=== PATIENT | male | born 1960 | race American Indian/Alaskan Native ===

== ENCOUNTER 2017-07-17 07:08 | Day surgery (SDC) | payer OTHER ==
[2016-08-25 01:19] VITALS: BMI 29.8
--- NOTE | 2017-07-17 08:15 | CP.SDSHP ---
Same Day Surgery H & P - History Proposed Procedure: Altered bowel habits. Diarrhea. EGD/colonoscopy Pre-Op Diagnosis: Altered bowel habits'/Diarrhea - Allergies Allergies: Allergies No Known Allergies Allergy (Verified 08/24/16 19:45) - Physical Exam General Appearance: nl Vital Signs: Vital Signs 07/17/17 07:43 Temperature 98.4 F Pulse Rate 72 Respiratory 19 Rate Blood Pressure 154/90 H O2 Sat by Pulse 97 Oximetry Mental Status: Alert & Oriented x3 Neuro: WNL Heart: WNL Lungs: WNL GI: WNL - {Optional Preform as Required} Abdomen: WNL - Impression Impression: Altered bowel habits. Diarrhea. EGD/colon Pt. Evaluated Today:Candidate for Anesthesia & Procedure: Yes - Date & Time Date: 07/17/17 Time: 08:14 Short Stay Discharge - Short Stay Discharge Admitting Diagnosis/Reason for Visit: CHRONIC DIARRHEA / EPIGASTRIC PAIN Disposition: HOME/ ROUTINE
[2017-07-17] MEDS ORDERED: Propofol 10 mg/ml Inj (20 ML) ONE (08:21)
[2017-07-17] MEDS ORDERED: Simethicone 40 mg/0.6 ml Liquid (30 ml) ONE (08:25)
[2017-07-17] MEDS ORDERED: Lactated Ringer's 500 ML IV SCH (08:45)
[2017-07-17 09:08] VITALS: TEMP 96.6
[2017-07-17 10:11] VITALS: BP 142/81; PULSE 67; RESP 15; O2SAT 95
== END 2017-07-17 10:05 | disposition home or self-care (01) ==
LOC: C.ENDO 07:08
PROVIDERS: ATTEND Internal Medicine
DX: K29.70 Gastritis, unspecified, without bleeding (principal); K52.9 Noninfective gastroenteritis and colitis, unspecified; R10.13 Epigastric pain; R19.4 Change in bowel habit; K29.80 Duodenitis without bleeding; B96.81 Helicobacter pylori [H. pylori] as the cause of diseases classified elsewhere; D12.0 Benign neoplasm of cecum
CPT/HCPCS: 43239; 45388; 82948; 88305; J2704; J3010; J7120

== ENCOUNTER 2017-08-04 07:27 | Day surgery (SDC) | payer OTHER ==
[2016-08-25 01:19] VITALS: BMI 29.8
[2017-08-04] MEDS ORDERED: Acetaminophen-Codeine 300/30 mg Tab PO PRN (08:36)
[2017-08-04] MEDS ORDERED: Dextrose 5%/0.45% NS 1,000 ML IV SCH (08:45)
[2017-08-04] MEDS ORDERED: ceFAZolin IV 1 gm in Dextrose 1 GM/50 ML BAG IVPB ONE (10:08)
[2017-08-04] MEDS ORDERED: EPINEPHrine 1:1000 Nasal Sol(30mL) ONE (10:08)
[2017-08-04] MEDS ORDERED: Propofol 10 mg/ml Inj (20 ML) ONE ×2 (10:15→10:32)
[2017-08-04] MEDS ORDERED: Midazolam 2 MG/2 ML VIAL ONE (10:15)
[2017-08-04] MEDS ORDERED: Succinylcholine Chloride 20 mg/ml Syr (5 ml) IV ONE (10:32)
[2017-08-04] MEDS ORDERED: Labetalol 25mg/5ml Syringe IVP PRN (11:04)
[2017-08-04] MEDS: HYDROmorphone 0.5 mg/0.5 ml ISec IVP PRN ×5 (11:09→11:53)
[2017-08-04] MEDS ORDERED: Lactated Ringer's 1,000 ML IV ONE (12:00)
[2017-08-04 12:55] VITALS: BP 149/89; PULSE 76; RESP 18; TEMP 97.5; O2SAT 96
--- NOTE | 2017-08-07 08:20 | OP ---
PROCEDURE DATE: 08/04/2017 PREOPERATIVE DIAGNOSIS: Nasopharyngeal mass. POSTOPERATIVE DIAGNOSIS: Nasopharyngeal mass. PROCEDURE: Endoscopic nasopharyngeal mass biopsy. SIGNIFICANT FINDINGS: Nasopharyngeal mass. DESCRIPTION OF PROCEDURE: The patient was brought into the room, placed in a supine position. Anesthesia was initiated through an ET tube. The patient was draped in the usual manner. Adrenaline-soaked pledgets were inserted into the nasal cavity, remained there for 5 minutes and removed. A zero-degree scope was inserted into the nasal cavity and passed through the nasopharynx, the nasopharyngeal mass was noted. Multiple biopsies of nasopharyngeal mass were taken. Bleeding was controlled using adrenaline-soaked pledgets. The scope was removed. The patient was taken off anesthesia and taken to recovery room in stable manner. Ministerio Jimenez MD
== END 2017-08-04 13:20 | disposition home or self-care (01) ==
LOC: C.SDS 07:27
PROVIDERS: ATTEND Otolaryngology
DX: J02.9 Acute pharyngitis, unspecified (principal)
CPT/HCPCS: 31535; 82948; 88304; 88342; J0690; J1100; J1170; J2250; J2704; J3010; J7030; J7120

== ENCOUNTER 2019-01-28 14:58 | Emergency (ER) | payer MEDICAID, OTHER ==
[2019-01-28 14:58] VITALS: BMI 29.8
--- NOTE | 2019-01-28 17:15 | C.PDOC ---
History Of Present Illness Patient is a 58 year old male who presents to the ED c/o new onset flank pain/ right groin since yesterday. Patient reports that the pain is intermittent and initial onset RLQ/groin now radiating to right flank. Patient also reports +urinary urgency. He states that he is on oxycontin for chronic LUE pain due to prior CVA. Improved but patient still has residual pain. He denies any hematuria, fever, nausea, or vomiting. NEW ONSET FLANK PAIN/R GROIN SINCE YEST. INTERMIT INITIAL ONSET RLQ/GROIN NOW RADIATION R FLANK. +URINARY URGENCY NO HEMATURIA. FEVER. NV. ON OXYCONTIN FOR CHRONIC L UE PAIN DUE TO PRIOR CVA. IMPROVED BUT STILL RESIDUAL PAIN EXAM MILD DIST +R CVAT BACK AROM WO DIFF ABD NEG REMAINDER NEG <RománLyssa - Last Filed: 01/28/19 18:33> History Per: Patient History/Exam Limitations: no limitations Onset/Duration Of Symptoms: Days (1) Current Symptoms Are (Timing): Still Present Quality Of Discomfort: "Pain" Associated Symptoms: denies: Fever, Nausea, Vomiting, Urinary Symptoms Recent travel outside of the [place]: No Additional History Per: Patient <RománLyssa - Last Filed: 01/28/19 18:33> <Giuliana Ware - Last Filed: 01/28/19 21:01> Time Seen by Provider: 01/28/19 16:48 Chief Complaint (Nursing): Male Genitourinary Past Medical History Reviewed: Historical Data, Nursing Documentation, Vital Signs Vital Signs: Last Vital Signs Temp 98.4 F 01/28/19 15:44 Pulse 80 01/28/19 15:44 Resp 18 01/28/19 15:44 BP 132/90 01/28/19 15:44 Pulse Ox 99 01/28/19 15:44 - Medical History PMH: Arthritis, Colonic Polyps, Fractures (ring finger right), HTN, Hypercholesterolemia Denies: Chronic Kidney Disease Surgical History: Endoscopy, Tonsillectomy Family History: States: Unknown Family Hx - Social History Hx Alcohol Use: Yes Hx Substance Use: No (marijuana) - Immunization History Hx Tetanus Toxoid Vaccination: No Hx Influenza Vaccination: Yes Hx Pneumococcal Vaccination: No <Lyssa France - Last Filed: 01/28/19 18:33> Vital Signs: Last Vital Signs Temp 97.8 F 01/28/19 20:18 Pulse 77 01/28/19 20:18 Resp 20 01/28/19 20:18 BP 139/84 01/28/19 20:18 Pulse Ox 97 01/28/19 20:18 <Giuliana Ware - Last Filed: 01/28/19 21:01> Review Of Systems Except As Marked, All Systems Reviewed And Found Negative. Constitutional: Negative for: Fever Cardiovascular: Negative for: Chest Pain Respiratory: Negative for: Shortness of Breath Gastrointestinal: Negative for: Nausea, Vomiting Genitourinary: Positive for: Frequency. Negative for: Dysuria Musculoskeletal: Positive for: Back Pain (flank/ right groin ) <RománLyssa Sarmiento Last Filed: 01/28/19 18:33> Physical Exam - Physical Exam Appears: In Acute Distress (MILD DIST) Head: Atraumatic, Normacephalic Cardiovascular: Rhythm Regular, No Murmur Respiratory: No Rales, No Rhonchi, No Wheezing, Other (NARD) Gastrointestinal/Abdominal: Soft, No Tenderness, No Distention, No Rebound Back: CVA Tenderness (+R CVAT), Other (AROM WO DIFF) Neurological/Psych: Oriented x3, Normal Speech, Normal Cognition <Lyssa [place] Last Filed: 01/28/19 18:33> ED Course And Treatment - Laboratory Results Result Diagrams: 01/28/19 17:56 O2 Sat by Pulse Oximetry: 99 (on RA) Pulse Ox Interpretation: Normal Progress Note: Plan: CAT A&P. Labs. Urinalysis. Tylenol 975mg PO. Toradol 30mg IVP. IV Fluids. Flomax 0.mg PO <RománLyssa Sarmiento Last Filed: 01/28/19 18:33> - Laboratory Results Result Diagrams: 01/28/19 17:56 01/28/19 17:56 Lab Results: Total Bilirubin 0.5 mg/dL (0.2-1.3) 01/28/19 17:56 AST 31 U/L (17-59) 01/28/19 17:56 ALT < 6 U/L (21-72) L 01/28/19 17:56 Alkaline Phosphatase 82 U/L (38-126) 01/28/19 17:56 Total Protein 7.9 g/dL (6.3-8.3) 01/28/19 17:56 Albumin 4.7 g/dL (3.5-5.0) 01/28/19 17:56 Globulin 3.2 gm/dL (2.2-3.9) 01/28/19 17:56 Albumin/Globulin Ratio 1.5 (1.0-2.1) 01/28/19 17:56 Lipase 97 U/L (23-300) 01/28/19 17:56 Urine Color Yellow (YELLOW) 01/28/19 18:25 Urine Clarity Hazy (Clear) 01/28/19 18:25 Urine pH 5.0 (5.0-8.0) 01/28/19 18:25 Ur Specific [place] 1.026 (1.003-1.030) 01/28/19 18:25 Urine Protein Negative mg/dL (NEGATIVE) 01/28/19 18:25 Urine Glucose (UA) Normal mg/dL (Normal) 01/28/19 18:25 Urine Ketones Negative mg/dL (NEGATIVE) 01/28/19 18:25 Urine Blood Negative (NEGATIVE) 01/28/19 18:25 Urine Nitrate Negative (NEGATIVE) 01/28/19 18:25 Urine Bilirubin Negative (NEGATIVE) 01/28/19 18:25 Urine Urobilinogen Normal mg/dL (0.2-1.0) 01/28/19 18:25 Ur Leukocyte Esterase 1+ Janice/uL (Negative) H 01/28/19 18:25 Urine WBC (Auto) 15 /hpf (0-5) H 01/28/19 18:25 Urine RBC (Auto) 3 /hpf (0-3) 01/28/19 18:25 Ur Squamous Epith Cells 3 /hpf (0-5) 01/28/19 18:25 Urine Bacteria Few (<OCC) H 01/28/19 18:25 Pulse Ox Interpretation: Normal - Other Rad CAT A&P X-Ray: Viewed By Me, Read By Radiologist Interpretation: IMPRESSION: 1. Findings suggestive of possible duodenitis. 2. Hepatomegaly. 3. Mild thickening of the urinary bladder hong could indicate some chronic cystitis versus artifact caused by decompression. 4. Moderate atherosclerotic vascular plaquing. Reevaluation Time: 20:55 Reassessment Condition: Improved <Giuliana Ware - Last Filed: 01/28/19 21:01> Medical Decision Making Medical Decision Making: Upon provider reevaluation patient is feeling better, is medically stable, and requires no further treatment in the ED at this time. Patient will be discharged home with Rx for flagyl, protonix and tramadol . Counseling was provided and all questions were answered regarding diagnosis and need for follow up with the referred clinic. There is agreement to discharge plan. Return if symptoms persist or worsen. <Giuliana Ware - Last Filed: 01/28/19 21:01> Disposition Counseled Patient/Family Regarding: Studies Performed, Diagnosis - Disposition Disposition Time: 19:00 <Lyssa France - Last Filed: 01/28/19 18:33> Counseled Patient/Family Regarding: Studies Performed, Diagnosis, Need For Followup, Rx Given <Giuliana Ware - Last Filed: 01/28/19 21:01> - Disposition Referrals: Gareth Hauser MD [Medical Doctor] - Disposition: HOME/ ROUTINE Condition: STABLE Additional Instructions: Please return if symptoms recur Prescriptions: Metronidazole [Flagyl] 500 mg PO TID #21 tablet Pantoprazole Sodium [Protonix] 40 mg PO DAILY #14 ect traMADol [Ultram] 50 mg PO QID PRN #16 tab PRN Reason: Pain, Severe (8-10) Instructions: Acute Abdomen (Belly Pain), Adult (DC) Forms: [facility] (Armenian) - Clinical Impression Clinical Impression: Flank pain, Duodenitis - Scribe Statement The provider has reviewed the documentation as recorded by the Subhash Nielsen All medical record entries made by the Scribe were at my direction and personall y dictated by me. I have reviewed the chart and agree that the record accurately reflects my personal performance of the history, physical exam, medical decision making, and the department course for this patient. I have also personally directed, reviewed, and agree with the discharge instructions and disposition. <Lyssa rFance - Last Filed: 01/28/19 18:33> Physician Patient Turnover Patient Signed Over To: Giuliana Ware Handoff Comments: FU LABS, CT, DISPO <Lyssa [place] - Last Filed: 01/28/19 18:33>
[2019-01-28] MEDS ORDERED: Sodium Chloride 0.9% 1,000 ML IV STA (17:17)
[2019-01-28] MEDS ORDERED: Sodium Chloride 0.9% 1,000 ML ONE (17:41)
[2019-01-28 18:01] LABS: BASO # 0.1 K/uL (0.0-0.2); BASO % 1.3 % (0.0-2.0); EOS # 0.2 K/uL (0.0-0.7); EOS % 1.8 % (0.0-4.0); HEMOGLOBIN 15.5 g/dL (12.0-18.0); LYMPH # 4.3 K/uL (1.0-4.3); LYMPH % 50.1 % (20.0-40.0); MEAN CELL VOLUME 92.6 fL (80.0-94.0); MEAN CORPUSCULAR HGB CONC 34.6 g/dL (33.0-37.0); MEAN PLATELET VOLUME 9.2 fL (7.2-11.7); MONO # 0.6 K/uL (0.0-0.8); MONO % 7.1 % (0.0-10.0); NEUT # 3.4 K/uL (1.8-7.0); NEUT % 39.7 % (50.0-75.0); NRBC % 0.1 % (0.0-2.0); RBC 4.83 Mil/uL (4.40-5.90); RED CELL DISTRIBUTION WIDTH 14.7 % (11.5-14.5); WHITE BLOOD COUNT 8.6 K/uL (4.8-10.8)
[2019-01-28 18:23] LABS: ALB/GLOB RATIO 1.5 (1.0-2.1); ALBUMIN 4.7 g/dL (3.5-5.0); BLOOD UREA NITROGEN 11 mg/dL (9-20); CALCIUM 10.1 mg/dl (8.6-10.4); GFR NON-AFRICAN AMERICAN > 60; LIPASE 97 U/L (23-300)
[2019-01-28 18:32] LABS: ALT/SGPT < 6 U/L (21-72); AST/SGOT 31 U/L (17-59)
[2019-01-28 18:50] LABS: SQUAMOUS EPITHIAL 3 /hpf (0-5); URINE BACTERIA FEW (<OCC); URINE BILIRUBIN NEGATIVE (NEGATIVE); URINE BLOOD NEGATIVE (NEGATIVE); URINE CLARITY Hazy (Clear); URINE COLOR Yellow (YELLOW); URINE GLUCOSE (UA) NORMAL (Normal); URINE LEUKOCYTE ESTERASE 1+ Leu/uL (Negative); URINE PROTEIN NEGATIVE (NEGATIVE); URINE UROBILINOGEN NORMAL mg/dL (0.2-1.0)
[2019-01-28 20:19] VITALS: BP 139/84; PULSE 77; RESP 20; TEMP 97.8; O2SAT 97
[2019-01-28] MEDS ORDERED: Oxycodone/Acetaminophen 5/325 mg Tab PO STA (20:20)
[2019-01-28] MEDS ORDERED: Oxycodone/Acetaminophen 5/325 mg Tab ONE (20:25)
--- NOTE | 2019-01-29 09:29 | CT ---
Date of service: 01/28/2019 PROCEDURE: CT Abdomen and Pelvis without intravenous contrast HISTORY: R FLANK PAIN COMPARISON: None. TECHNIQUE: Without contrast.. Contrast dose: 0 Radiation dose: Total exam DLP = 1212.82 mGy-cm. This CT exam was performed using one or more of the following dose reduction techniques: Automated exposure control, adjustment of the mA and/or kV according to patient size, and/or use of iterative reconstruction technique. FINDINGS: LOWER THORAX: Unremarkable. LIVER: Unremarkable. No gross lesion or ductal dilatation. GALLBLADDER AND BILE DUCTS: Unremarkable. PANCREAS: Unremarkable. No gross lesion or ductal dilatation. SPLEEN: Unremarkable. ADRENALS: Unremarkable. No mass. KIDNEYS AND URETERS: Unremarkable. No hydronephrosis. No solid mass. No renal or ureteral calculus. VASCULATURE: Unremarkable. No aortic aneurysm. There is atherosclerotic calcification of the abdominal aorta. BOWEL: Unremarkable. No obstruction. No gross mural thickening. APPENDIX: Unremarkable. Normal appendix. PERITONEUM: Unremarkable. No free fluid. No free air. LYMPH NODES: Unremarkable. No enlarged lymph nodes. BLADDER: Nondistended REPRODUCTIVE: Normal prostate BONES: No acute fracture. OTHER FINDINGS: None. IMPRESSION: Unremarkable examination. No evidence of urinary calculus or urinary tract obstruction. The preliminary findings for this examination were reported by [facility] at 01/28/2019 at 8:46 p.m.. There is discordance of this report with the preliminary findings. There is no evidence of duodenitis. There is no evidence of hepatomegaly. The bladder is decompressed and the bladder wall thickness cannot be accurately assessed.
== END 2019-01-28 21:12 | disposition home or self-care (01) ==
LOC: C.ER 14:58
DX: K29.80 Duodenitis without bleeding (principal); R10.9 Unspecified abdominal pain
CPT/HCPCS: 74176; 80053; 81001; 83690; 85025; 96361; 96374; 99285; J1885; J7030